=== PATIENT | male | born 1970 | race Two or more races ===

== ENCOUNTER 2018-11-03 12:16 | Emergency (ER) | payer SELFPAY ==
[~2018-11-03] VITALS: Ht 175.3 cm; Wt 59.9 kg
--- NOTE | 2018-11-03 13:53 | Diagnostic Imaging Report ---
EXAMINATION: Right rib radiographs with chest radiograph, right shoulder radiographs-2 views INDICATION: Right rib and shoulder pain status post fall. COMPARISON: None FINDINGS: TUBES and LINES: None. LUNGS: Lungs are well inflated. There is biapical pleural-parenchymal opacity, consistent with prior granulomatous disease. There is no evidence of pneumonia or pulmonary edema. Possible azygos lobe. PLEURA: Trace right pleural effusion versus thickening. No evidence of pneumothorax. HEART AND MEDIASTINUM: The cardiomediastinal silhouette is unremarkable. BONES AND SOFT TISSUES: There is widening of the right AC joint, measuring up to 1.6 cm. There is a deformity of the right posterior seventh rib. No evidence of acute rib fracture. UPPER ABDOMEN: No free air under the diaphragm. IMPRESSION: Right AC joint widening, measuring up to 1.6 cm, suggestive of ligamentous injury. No evidence of underlying fracture. No evidence of acute rib fracture. Deformity of the right posterior seventh rib, consistent with prior trauma. Clear lungs. Signed by: Dr. Van Bravo MD on 11/03/2018 1:49 PM
[2018-11-03 14:39] VITALS: BP 165/77
== END 2018-11-03 14:42 | disposition home or self-care (01) ==
LOC: ER 12:16
DX: S20.211A Contusion of right front wall of thorax, initial encounter (principal); S43.101A Unspecified dislocation of right acromioclavicular joint, initial encounter; W17.89XA Other fall from one level to another, initial encounter; Y99.0 Civilian activity done for income or pay; J44.9 Chronic obstructive pulmonary disease, unspecified
CPT/HCPCS: 71101; 99283